=== PATIENT | male | born 1960 | race African-American/Black ===

== ENCOUNTER 2019-01-28 15:02 | Emergency (ER) | payer OTHER ==
--- OUTSIDE RECORDS SUMMARY | 2019-01-28 15:04 | XMS REPORT | Clinical Summary ---
:1960 Author Organization [facility] Address [address] [place] [address] Care Team Providers Name Role Phone Mary Lou Hamilton Primary Care Provider Unavailable Allergies No Known Allergies Medications Medication Sig Dispensed Refills Start Date End Date Status lisinopril-hydrochloro Take 1 tablet by 0 Active thiazide mouth daily. (PRINZIDE,ZESTORETIC) 20-12.5 mg per tablet Active Problems Not on file Social History Tobacco Use Types Packs/Day Years Used Date Never Smoker 0.5 Alcohol Use Drinks/Week oz/Week Comments Yes occasional Sex Assigned at Date Recorded Not on file Job Start Date Occupation Industry Not on file Not on file Not on file Travel History Travel Start Travel End No recent travel history available. Last Filed Vital Signs Not on file Plan of Treatment Not on file Results Not on fileafter 01/27/2018 Insurance Payer Benefit Plan / Group Subscriber ID Type Phone Address [employer] - [employer] CARE CIGNA HMO/POS/OPEN ACCESS xxxxxxxxxxx HMO/POS
--- NOTE | 2019-01-28 17:11 | EDPHYS ---
Physician Documentation [facility] Name: Bakari Delgado Sr Age: 58 yrs Sex: Male : 1960 Arrival Date: 01/28/2019 Time: 15:04 Bed 17 Private MD: ED Physician Yosef Rausch HPI: 01/28 17:01 This 58 yrs old Black Male presents to ER via Ambulatory with complaints of Arm Pain. kb 17:01 The patient or guardian complains of pain, that is acute. The complaints affect the kb left elbow and palmar aspect of left forearm. Context: The problem was sustained at home, resulted from unknown cause. Onset: The symptoms/episode began/occurred last night. Treatment prior to arrival includes: no previous treatment. Modifying factors: The symptoms are alleviated by nothing. the symptoms are aggravated by nothing. Associated signs and symptoms: The patient has no apparent associated signs or symptoms. Severity of symptoms: At their worst the symptoms were moderate, in the emergency department the symptoms are unchanged. The patient has not experienced similar symptoms in the past. The patient has not recently seen a physician. pt c/o left elbow/forearm pain that woke him up at approx 0400 this morning. Denies injury/trauma. No pain with rom/palpation. Called his dr to make an appt but they couldn't get him in until tomorrow so he came here. . Historical: - Allergies: 15:18 NKDA; tw2 - Home Meds: 15:18 lisinopril-hydrochlorothiazide 20-12.5 mg Oral tab 1 tab once daily [Active]; tw2 - PMHx: 15:18 Hypertension; tw2 - PSHx: 15:18 anal fissure repair; tw2 - Immunization history:: Adult Immunizations. - Social history:: Smoking status: . - Ebola Screening: : Patient denies travel to an Ebola-affected area in the 21 days before illness onset. ROS: 17:00 Constitutional: Negative for fever, chills, and weight loss, Cardiovascular: Negative kb for chest pain, palpitations, and edema, Respiratory: Negative for shortness of breath, cough, wheezing, and pleuritic chest pain, Abdomen/GI: Negative for abdominal pain, nausea, vomiting, diarrhea, and constipation, Skin: Negative for injury, rash, and discoloration, Neuro: Negative for headache, weakness, numbness, tingling, and seizure. 17:00 MS/extremity: Positive for pain, of the left elbow and palmar aspect of left forearm. Exam: 17:00 Constitutional: This is a well developed, well nourished patient who is awake, alert, kb and in no acute distress. Head/Face: Normocephalic, atraumatic. Chest/axilla: Normal chest wall appearance and motion. Nontender with no deformity. No lesions are appreciated. Cardiovascular: Regular rate and rhythm with a normal S1 and S2. No gallops, murmurs, or rubs. Normal PMI, no JVD. No pulse deficits. Respiratory: Lungs have equal breath sounds bilaterally, clear to auscultation and percussion. No rales, rhonchi or wheezes noted. No increased work of breathing, no retractions or nasal flaring. Abdomen/GI: Soft, non-tender, with normal bowel sounds. No distension or tympany. No guarding or rebound. No evidence of tenderness throughout. Back: No spinal tenderness. No costovertebral tenderness. Full range of motion. Skin: Warm, dry with normal turgor. Normal color with no rashes, no lesions, and no evidence of cellulitis. MS/ Extremity: Pulses equal, no cyanosis. Neurovascular intact. Full, normal range of motion. Neuro: Awake and alert, GCS 15, oriented to person, place, time, and situation. Cranial nerves II-XII grossly intact. Motor strength 5/5 in all extremities. Sensory grossly intact. Cerebellar exam normal. Normal gait. Vital Signs: 15:17 BP 141 / 69; Pulse 78; Resp 17; Temp 98(TE); Pulse Ox 95% on R/A; Weight 128.82 kg (R); tw2 Height 5 ft. 7 in. (170.18 cm); Pain 8/10; 17:16 BP 147 / 71; Pulse 69; Resp 17; Temp 98; Pulse Ox 97% ; bp 15:17 Body Mass Index 44.48 (128.82 kg, 170.18 cm) tw2 MDM: 16:50 Patient medically screened. kb 17:01 Data reviewed: vital signs, nurses notes. Data interpreted: Pulse oximetry: on room air kb is 95 %. Interpretation: normal. Counseling: I had a detailed discussion with the patient and/or guardian regarding: the historical points, exam findings, and any diagnostic results supporting the discharge/admit diagnosis, the need for outpatient follow up, a family practitioner, to return to the emergency department if symptoms worsen or persist or if there are any questions or concerns that arise at home. 17:04 ED course: No redness, swelling, warmth noted. No infectious process suspected. No kb signs of gout noted. . Administered Medications: 17:05 Drug: [place] 10 mg-325 mg 1 tabs Route: PO; bp Disposition: 01/29 09:11 Co-signature as Attending Physician, Yosef Rausch MD I agree with the assessment and kdr plan of care. Disposition: 01/28/19 17:09 Discharged to Home. Impression: Pain in left forearm, Pain in left elbow. - Condition is Stable. - Discharge Instructions: Musculoskeletal Pain. - Prescriptions for Cyclobenzaprine 10 mg Oral Tablet - take 1 tablet by ORAL route every 8 hours As needed; 21 tablet. Diclofenac Sodium 75 mg Oral Tablet, Delayed Release (E.C.) - take 1 tablet by ORAL route 2 times per day As needed; 30 tablet. - Medication Reconciliation Form, Thank You Letter, Antibiotic Education, Prescription Opioid Use form. - Follow up: Emergency Department; When: As needed; Reason: Worsening of condition. Follow up: Private Physician; When: 2 - 3 days; Reason: Recheck today's complaints, Continuance of care, Re-evaluation by your physician. Signatures: Jennifer Genao, PARAPROFESSIONAL AIDE-C PARAPROFESSIONAL AIDE-Yosef King MD MD [facility] Asia Rdz RN RN 2 Jack Alvarez, AYANA RN bp Corrections: (The following items were deleted from the chart) 01/28 17:21 17:09 01/28/2019 17:09 Discharged to Home. Impression: Pain in left forearm; Pain in bp left elbow. Condition is Stable. Forms are Medication Reconciliation Form, Thank You Letter, Antibiotic Education, Prescription Opioid Use. Follow up: Emergency Department; When: As needed; Reason: Worsening of condition. Follow up: Private Physician; When: 2 - 3 days; Reason: Recheck today's complaints, Continuance of care, Re-evaluation by your physician. kb
--- NOTE | 2019-01-28 17:11 | ER ---
Nurse's Notes [facility] Name: Bakari Delgado Sr Age: 58 yrs Sex: Male : 1960 Arrival Date: 01/28/2019 Time: 15:04 Bed 17 Private MD: Diagnosis: Pain in left forearm;Pain in left elbow Presentation: 01/28 15:15 Presenting complaint: Patient states: my LEFT elbow started hurting last night then 3 tw2 am this morning it really got bad, from the middle of my upper arm down to the middle of my forearm, and every once in a while it sends a zing up to my neck. Transition of care: patient was not received from another setting of care. Onset of symptoms was January 28, 2019. Risk Assessment: Do you want to hurt yourself or someone else? Patient reports no desire to harm self or others. Initial Sepsis Screen: Does the patient meet any 2 criteria? No. Patient's initial sepsis screen is negative. Does the patient have a suspected source of infection? No. Patient's initial sepsis screen is negative. Care prior to arrival: None. 15:15 Method Of Arrival: Ambulatory tw2 15:15 Acuity: REMY 4 tw2 Triage Assessment: 15:17 General: Appears in no apparent distress. obese, well groomed, Behavior is calm, tw2 cooperative, appropriate for age. Pain: Complains of pain in left bicep, left antecubital area and dorsal aspect of left forearm. Musculoskeletal: Circulation, motion, and sensation intact. Range of motion: intact in all extremities. Historical: - Allergies: 15:18 NKDA; tw2 - Home Meds: 15:18 lisinopril-hydrochlorothiazide 20-12.5 mg Oral tab 1 tab once daily [Active]; tw2 - PMHx: 15:18 Hypertension; tw2 - PSHx: 15:18 anal fissure repair; tw2 - Immunization history:: Adult Immunizations. - Social history:: Smoking status: . - Ebola Screening: : Patient denies travel to an Ebola-affected area in the 21 days before illness onset. Screenin:00 Abuse screen: Denies threats or abuse. Denies injuries from another. Nutritional bp screening: No deficits noted. Tuberculosis screening: No symptoms or risk factors identified. Fall Risk None identified. Assessment: 16:00 General: Appears in no apparent distress. uncomfortable, Behavior is cooperative, bp appropriate for age, anxious. Pain: Complains of pain in left arm. Neuro: Level of Consciousness is awake, alert, obeys commands, Oriented to person, place, time, situation, Appropriate for age. Cardiovascular: No deficits noted. Respiratory: Airway is patent Respiratory effort is even, unlabored, Respiratory pattern is regular, symmetrical. GI: No signs and/or symptoms were reported involving the gastrointestinal system. : No signs and/or symptoms were reported regarding the genitourinary system. EENT: No deficits noted. Derm: No deficits noted. Musculoskeletal: Circulation, motion, and sensation intact. Range of motion: intact in all extremities. Vital Signs: 15:17 BP 141 / 69; Pulse 78; Resp 17; Temp 98(TE); Pulse Ox 95% on R/A; Weight 128.82 kg (R); tw2 Height 5 ft. 7 in. (170.18 cm); Pain 8/10; 17:16 BP 147 / 71; Pulse 69; Resp 17; Temp 98; Pulse Ox 97% ; bp 15:17 Body Mass Index 44.48 (128.82 kg, 170.18 cm) tw2 ED Course: 15:04 Patient arrived in ED. mr 15:17 Triage completed. tw2 15:17 Arm band placed on. tw2 16:00 Patient has correct armband on for positive identification. Bed in low position. Call bp light in reach. Side rails up X2. Adult w/ patient. 16:50 Jennifer Genao FNP-C is [facility]. kb 16:50 Yosef Rausch MD is Attending Physician. kb 16:58 Jack Alvarez, AYANA is Primary Nurse. bp 17:17 No provider procedures requiring assistance completed. Patient did not have IV access bp during this emergency room visit. Administered Medications: 17:05 Drug: [place] 10 mg-325 mg 1 tabs Route: PO; bp Outcome: 17:09 Discharge ordered by . kb 17:17 Discharged to home ambulatory, with family. bp 17:17 Condition: stable 17:17 Discharge instructions given to patient, family, Instructed on discharge instructions, follow up and referral plans. medication usage, Demonstrated understanding of instructions, follow-up care, medications, Prescriptions given X 2. 17:21 Patient left the ED. bp Signatures: Jennifer Genao, ROSALBA BURR FILER-Tram Bowens mr Asia Rdz, RN RN tw2 Jakc Alvarez, RN RN bp
[2019-01-28] MEDS ORDERED: HYDROCODONE/APAP 10/325 TAB ONE (17:18)
[2019-01-28 18:12] VITALS: TEMP 98
[2019-01-28 18:13] VITALS: BP 147/71; O2SAT 97
== END 2019-01-28 17:21 | disposition home or self-care (01) ==
LOC: ER 15:02
DX: M79.632 Pain in left forearm (principal); M25.522 Pain in left elbow; I10 Essential (primary) hypertension
CPT/HCPCS: 99283

== ENCOUNTER 2020-06-05 05:45 | Emergency (ER) | payer OTHER ==
--- OUTSIDE RECORDS SUMMARY | 2020-06-05 05:47 | XMS REPORT | Clinical Summary ---
:1960 Author Organization [facility] Address [address] [place] [address] Care Team Providers Name Role Phone Valeria Hamilton Primary Care Provider Unavailable Allergies No [...] Not on file Results Not on fileafter 06/05/2019 Insurance Payer Benefit Plan / Group Subscriber ID Type Phone A ddress [employer] - [employer]GD CARE CIGNA HMO/POS/OPEN ACCESS xxxxxxxxxxx HMO/POS
[2020-06-05 06:52] LABS: Absolute Lymphocytes (CBC) 1.1 K/uL (0.7-4.9); Basophils % 0.7 % (0-1.3); Hematocrit 43.8 % (39.6-49.0); Lymphocytes % 19.4 % (15.3-44.8); MPV 7.5 fL (7.6-11.3)
[2020-06-05 06:53] LABS: Protime INR 1.16
[2020-06-05 07:10] LABS: ALT/SGPT 23 U/L (12-78); AST/SGOT 11 U/L (15-37); Albumin 3.5 g/dL (3.4-5.0); Alkaline Phosphatase 56 U/L (45-117); BUN Blood Urea Nitrogen 13 mg/dL (7-18); Bicarbonate 23 mmol/L (21-32); Bilirubin Direct 0.1 mg/dL (0-0.2); Bilirubin Total 0.5 mg/dL (0.2-1.0); Glucose Level 103 mg/dL (74-106); Magnesium 2.2 mg/dL (1.8-2.4); NT PRO-BNP 12 pg/mL (<125); Potassium 3.6 mmol/L (3.5-5.1); Protein, Total 7.3 g/dL (6.4-8.2); Sodium Level 141 mmol/L (136-145); Troponin (Emerg Dept Use Only) < 0.02 ng/mL (0.0-0.045)
--- NOTE | 2020-06-05 07:19 | RAD REPORT ---
EXAM DESCRIPTION: RAD - Chest Single View - 06/05/2020 6:32 am CLINICAL HISTORY: CHEST PAIN COMPARISON: Portable June 2006 TECHNIQUE: AP portable chest image was obtained 06/05/2020 6:32 am . FINDINGS: Lung volumes are low. Exam is further limited by large body habitus. No peripheral mass or consolidation. No significant pulmonary edema or failure findings. Mild forms could be obscured by t he exam limitations. Heart and vasculature are normal. No measurable pleural effusion and no pneumothorax. No acute bony abnormality seen. No acute aortic findings suspected. IMPRESSION: Limited study without acute cardiopulmonary finding. Mild forms of failure or volume overload could be masked.
[2020-06-05] MEDS ORDERED: KETOROLAC 30 MG/ML INJ ONE (08:07)
--- NOTE | 2020-06-05 09:37 | EDPHYS ---
Physician Documentation [facility] Name: Bakari Delgado Sr Age: 60 yrs Sex: Male : 1960 Arrival Date: 06/05/2020 Time: 05:47 Bed 6 Private MD: ED Physician Lionel Sosa HPI: 06/05 06:52 This 60 yrs old Black Male presents to ER via Ambulatory with complaints of Chest Pain. kb 06:52 The patient or guardian reports chest pain that is located primarily in the anterior kb chest wall. Onset: 3 day(s) ago. The pain does not radiate. Associated signs and symptoms: The patient has no apparent associated signs or symptoms. The chest pain is described as aching. Duration: The patient or guardian reports a single episode, that is still ongoing, and unchanged. Modifying factors: The symptoms are alleviated by nothing. the symptoms are aggravated by deep breath. Severity of pain: At its worst the pain was mild in the emergency department the pain is unchanged. The patient has experienced a previous episode. The patient has not recently seen a physician. Pt reports mid and upper chest pain that started 3 days ago after doing yard work. States pain is worse with inspiration. Denies any associated symptoms. States he had similar pain a few years ago from a strained muscle. . Historical: - Allergies: 06:03 NKDA; lp1 - Home Meds: 06:03 lisinopril-hydrochlorothiazide 20-12.5 mg Oral tab 1 tab once daily [Active]; atenolol lp1 25 mg Oral tab 1 tab once daily [Active]; - PMHx: 06:03 Hypertension; lp1 - PSHx: 06:03 Anal fissure; lp1 - Immunization history:: Adult Immunizations up to date. - Social history:: Smoking status: Patient denies any tobacco usage or history of. ROS: 06:51 Constitutional: Negative for fever, chills, and weight loss, Respiratory: Negative for kb shortness of breath, cough, wheezing, and pleuritic chest pain, Abdomen/GI: Negative for abdominal pain, nausea, vomiting, diarrhea, and constipation, Back: Negative for injury and pain, MS/Extremity: Negative for injury and deformity, Skin: Negative for injury, rash, and discoloration, Neuro: Negative for headache, weakness, numbness, tingling, and seizure. 06:51 Cardiovascular: Positive for chest pain, of the right supraclavicular area, left clavicle and mid-sternal area. Exam: 06:50 Constitutional: This is a well developed, well nourished patient who is awake, alert, kb and in no acute distress. Head/Face: Normocephalic, atraumatic. Chest/axilla: Normal chest wall appearance and motion. Nontender with no deformity. No lesions are appreciated. Cardiovascular: Regular rate and rhythm with a normal S1 and S2. No gallops, murmurs, or rubs. Normal PMI, no JVD. No pulse deficits. Respiratory: Lungs have equal breath sounds bilaterally, clear to auscultation and percussion. No rales, rhonchi or wheezes noted. No increased work of breathing, no retractions or nasal flaring. Abdomen/GI: Soft, non-tender, with normal bowel sounds. No distension or tympany. No guarding or rebound. No evidence of tenderness throughout. Skin: Warm, dry with normal turgor. Normal color with no rashes, no lesions, and no evidence of cellulitis. MS/ Extremity: Pulses equal, no cyanosis. Neurovascular intact. Full, normal range of motion. Neuro: Awake and alert, GCS 15, oriented to person, place, time, and situation. Cranial nerves II-XII grossly intact. Motor strength 5/5 in all extremities. Sensory grossly intact. Cerebellar exam normal. Normal gait. 06:50 ECG was reviewed by the Attending Physician. 09:17 ECG was reviewed by the Attending Physician. kb Vital Signs: 05:58 BP 141 / 76; Pulse 74; Resp 18; Temp 98.7(TE); Pulse Ox 95% on R/A; Weight 128.82 kg lp1 (R); Height 5 ft. 7 in. (170.18 cm); Pain 5/10; 07:11 BP 120 / 72; Pulse 65; Resp 16 S; Pulse Ox 98% on R/A; iw 07:51 BP 119 / 69; Pulse 67; Resp 19; Pulse Ox 97% ; sv 09:11 BP 118 / 58; Pulse 68; Pulse Ox 98% on R/A; ss 05:58 Body Mass Index 44.48 (128.82 kg, 170.18 cm) lp1 MDM: 06:01 Patient medically screened. kb 06:50 Data reviewed: vital signs, nurses notes. Data interpreted: Pulse oximetry: on room air kb is 95 %. Interpretation: normal. 09:35 Counseling: I had a detailed discussion with the patient and/or guardian regarding: the kb historical points, exam findings, and any diagnostic results supporting the discharge/admit diagnosis, lab results, radiology results, the need for outpatient follow up, a family practitioner, to return to the emergency department if symptoms worsen or persist or if there are any questions or concerns that arise at home. 06/05 06:03 Order name: Basic Metabolic Panel kb 06/05 06:03 Order name: CBC with Diff kb 06/05 06:03 Order name: LFT's 06/05 06:03 Order name: Magnesium 06/05 06:03 Order name: NT PRO-BNP 06/05 06:03 Order name: PT-INR 06/05 06:03 Order name: Troponin (emerg Dept Use Only) 06/05 06:53 Order name: CBC with Automated Diff; Complete Time: 06:55 EDMS 06/05 06:54 Order name: Protime (+INR); Complete Time: 06:55 EDMS 06/05 07:10 Order name: Basic Metabolic Panel; Complete Time: 07:15 EDMS 06/05 07:10 Order name: Liver (Hepatic) Function; Complete Time: 07:15 EDMS 06/05 07:10 Order name: Troponin (Emerg Dept Use Only); Complete Time: 07:15 EDMS 06/05 07:10 Order name: NT PRO-BNP; Complete Time: 07:15 EDMS 06/05 07:10 Order name: Magnesium; Complete Time: 07:15 EDMS 06/05 06:03 Order name: XRAY Chest (1 view) kb 06/05 06:03 Order name: EKG; Complete Time: 06:06 kb 06/05 06:03 Order name: Cardiac monitoring; Complete Time: 06:43 kb 06/05 06:03 Order name: EKG - Nurse/Tech; Complete Time: 06:43 kb 06/05 06:03 Order name: IV Saline Lock; Complete Time: 06:43 kb 06/05 06:03 Order name: Labs collected and sent; Complete Time: 06:43 kb 06/05 06:03 Order name: O2 Per Protocol; Complete Time: 06:43 kb 06/05 06:03 Order name: O2 Sat Monitoring; Complete Time: 06:43 kb 06/05 07:19 Order name: RAD; Complete Time: 07:34 EDMS 06/05 08:37 Order name: Troponin (emerg Dept Use Only) kb 06/05 08:37 Order name: EKG; Complete Time: 08:37 kb 06/05 08:37 Order name: EKG - Nurse/Tech; Complete Time: 09:19 kb 06/05 09:30 Order name: Troponin (Emerg Dept Use Only); Complete Time: 09:35 EDMS EC:50 Rate is 67 beats/min. Rhythm is regular. QRS [place] is Normal. TX interval is normal at kb 188 msec. QRS interval is normal at 82 msec. QT interval is normal at 378 msec. 09:17 Rate is 65 beats/min. Rhythm is regular. QRS [place] is Normal. TX interval is normal at kb 194 msec. QRS interval is normal at 90 msec. QT interval is normal at 388 msec. Administered Medications: 07:58 Drug: TORadol - Ketorolac 15 mg Route: IVP; Site: right antecubital; iw 08:30 Follow up: Response: No adverse reaction iw Disposition: 19:04 Co-signature as Attending Physician, Lionel Sosa MD. selena Disposition: 06/05/20 09:36 Discharged to Home. Impression: Chest pain, unspecified. - Condition is Stable. - Discharge Instructions: Chest Wall Pain, [id number], Nonspecific Chest Pain, [id number]. - Prescriptions for Cyclobenzaprine 10 mg Oral Tablet - take 1 tablet by ORAL route every 8 hours As needed; 21 tablet. Diclofenac Sodium 75 mg Oral Tablet, Delayed Release (E.C.) - take 1 tablet by ORAL route 2 times per day As needed; 30 tablet. - Medication Reconciliation Form, Thank You Letter, Antibiotic Education, Prescription Opioid Use form. - Follow up: Emergency Department; When: As needed; Reason: Worsening of condition. Follow up: Private Physician; When: 2 - 3 days; Reason: Recheck today's complaints, Continuance of care, Re-evaluation by your physician. Signatures: Dispatcher [employer] EDMS Jennifer Genao, GILES-Mulugeta SKAGGS-Ckb Sosa, MD MD selena Flowers Irene RN RN iw Grazyna Hoff RN RN lp1 Corrections: (The following items were deleted from the chart) 10:02 09:36 06/05/2020 09:36 Discharged to Home. Impression: Chest pain, unspecified. iw Condition is Stable. Forms are Medication Reconciliation Form, Thank You Letter, Antibiotic Education, Prescription Opioid Use. Follow up: Emergency Department; When: As needed; Reason: Worsening of condition. Follow up: Private Physician; When: 2 - 3 days; Reason: Recheck today's complaints, Continuance of care, Re-evaluation by your physician. kb
--- NOTE | 2020-06-05 09:37 | ER ---
Nurse's Notes [facility] Name: Bakari Delgado Sr Age: 60 yrs Sex: Male : 1960 Arrival Date: 06/05/2020 Time: 05:47 Bed 6 Private MD: Diagnosis: Chest pain, unspecified Presentation: 06/05 05:58 Chief complaint: Patient states: Chest pain that began 2 days ago; Patient states doing lp1 yard work 2 days ago, using pole saw to cut down trees and mowed yard for 3 hours; Has pain to chest and upper back on movement and respiration; Denies shortness of breath, dizziness, sweating at this time; No OTC medications at home for pain. Coronavirus screen: Client denies travel out of the [place] in the last 14 days. At this time, the client does not indicate any symptoms associated with coronavirus-19. Ebola Screen: No symptoms or risks identified at this time. Initial Sepsis Screen: Does the patient meet any 2 criteria? No. Patient's initial sepsis screen is negative. Does the patient have a suspected source of infection? No. Patient's initial sepsis screen is negative. Risk Assessment: Do you want to hurt yourself or someone else? Patient reports no desire to harm self or others. Onset of symptoms was June 03, 2020. 05:58 Method Of Arrival: Ambulatory lp1 05:58 Acuity: REMY 3 lp1 Historical: - Allergies: 06:03 NKDA; lp1 - Home Meds: 06:03 lisinopril-hydrochlorothiazide 20-12.5 mg Oral tab 1 tab once daily [Active]; atenolol lp1 25 mg Oral tab 1 tab once daily [Active]; - PMHx: 06:03 Hypertension; lp1 - PSHx: 06:03 Anal fissure; lp1 - Immunization history:: Adult Immunizations up to date. - Social history:: Smoking status: Patient denies any tobacco usage or history of. Screenin:03 Abuse screen: Denies threats or abuse. Denies injuries from another. Nutritional lp1 screening: No deficits noted. Tuberculosis screening: No symptoms or risk factors identified. Fall Risk None identified. Assessment: 06:51 General: Appears comfortable, Behavior is calm, cooperative. Pain: Complains of pain in rv chest Pain does not radiate. Pain began suddenly. Neuro: Level of Consciousness is awake, alert, obeys commands, Oriented to person, place, time, situation. Cardiovascular: Rhythm is sinus rhythm. Respiratory: Airway is patent Respiratory effort is even, unlabored, Breath sounds are clear bilaterally. Derm: Skin is intact. 07:11 Reassessment: Patient appears in no apparent distress at this time. Patient and/or iw family updated on plan of care and expected duration. Pain level reassessed. Patient is alert, oriented x 3, equal unlabored respirations, skin warm/dry/pink. 09:00 Reassessment: Patient appears in no apparent distress at this time. Patient and/or iw family updated on plan of care and expected duration. Pain level reassessed. Patient is alert, oriented x 3, equal unlabored respirations, skin warm/dry/pink. Vital Signs: 05:58 BP 141 / 76; Pulse 74; Resp 18; Temp 98.7(TE); Pulse Ox 95% on R/A; Weight 128.82 kg lp1 (R); Height 5 ft. 7 in. (170.18 cm); Pain 5/10; 07:11 BP 120 / 72; Pulse 65; Resp 16 S; Pulse Ox 98% on R/A; iw 07:51 BP 119 / 69; Pulse 67; Resp 19; Pulse Ox 97% ; sv 09:11 BP 118 / 58; Pulse 68; Pulse Ox 98% on R/A; ss 05:58 Body Mass Index 44.48 (128.82 kg, 170.18 cm) lp1 ED Course: 05:47 Patient arrived in ED. cl3 06:01 [facility] kb 06:01 Lionel Sosa MD is Attending Physician. kb 06:02 Triage completed. lp1 06:02 Arm band placed on left wrist. lp1 06:03 Patient maintains SpO2 saturation greater than 95% on room air. lp1 06:34 Tyron Ruiz RN is Primary Nurse. rv 06:40 Inserted saline lock: 18 gauge in right antecubital area, using aseptic technique. ds4 Blood collected. 06:52 Patient has correct armband on for positive identification. Bed in low position. Call rv light in reach. Side rails up X 1. cell coverer on. Pulse ox on. NIBP on. 07:01 Basic Metabolic Panel Sent. sv 07:01 CBC with Diff Sent. sv 07:01 LFT's Sent. sv 07:01 Magnesium Sent. sv 07:01 NT PRO-BNP Sent. sv 07:01 PT-INR Sent. sv 07:01 Troponin (emerg Dept Use Only) Sent. sv 07:02 XRAY Chest (1 view) Sent. sv 07:12 Primary Nurse role handed off by Tyron Ruiz, AYANA iw 07:12 Quin Vasquez, RN is Primary Nurse. iw 09:09 Troponin (emerg Dept Use Only) Sent. iw 10:01 No provider procedures requiring assistance completed. IV discontinued, intact, iw bleeding controlled, No redness/swelling at site. Pressure dressing applied. Administered Medications: 07:58 Drug: TORadol - Ketorolac 15 mg Route: IVP; Site: right antecubital; iw 08:30 Follow up: Response: No adverse reaction iw Outcome: 09:36 Discharge ordered by MD. kb 10:01 Discharged to home ambulatory. iw 10:01 Condition: good 10:01 Discharge instructions given to patient, Instructed on discharge instructions, follow up and referral plans. medication usage, Demonstrated understanding of instructions, follow-up care, medications, Prescriptions given X 2. 10:02 Patient left the ED. iw Signatures: Jennifer Genao, GILES-C VP PLATFORMS-Mary Jane Brandt, RN AYANA Quin Vasquez, AYANA PIÑA Kandi Damico RN RN ss Pena, Laura, RN RN lp1 Kobi Estrada ds4 Tyron Ruiz, Nani Otero RN cl3 Corrections: (The following items were deleted from the chart) 10:32 10:01 Patient admitted, IV remains in place. iw iw
[2020-06-05 10:48] VITALS: TEMP 98.7
[2020-06-05 10:49] VITALS: O2SAT 98
[2020-06-05 10:55] VITALS: BP 118/58
--- NOTE | 2020-06-06 10:47 | EKG ---
Test Date: 2020-06-05 Test Time: 06:45:53 System Admin: RV MEASUREMENT RESULTS: Intervals: Rate: 67 AR: 188 QRSD: 82 QT: 378 QTc: 399 [place]: P: 57 AR: 188 QRS: 28 T: -7 INTERPRETIVE STATEMENTS: Sinus rhythm with premature ventricular complexes or fusion complexes Possible Left atrial enlargement Inferior infarct, age undetermined Abnormal ECG Compared to ECG 07/01/2016 10:00:19 Fusion complex(es) now present Ventricular premature complex(es) now present Myocardial infarct finding now present Electronically Signed On 06-06-20 10:45:19 CDT by Michael Dudley
--- NOTE | 2020-06-06 10:47 | EKG ---
Test Date: 2020-06-05 Test Time: 09:17:18 Wreath Inspector: KATIE MEASUREMENT RESULTS: Intervals: Rate: 65 SC: 194 QRSD: 90 QT: 388 QTc: 403 [place]: P: 41 SC: 194 QRS: 32 T: 1 INTERPRETIVE STATEMENTS: Normal sinus rhythm Possible Left atrial enlargement Inferior infarct, age undetermined Abnormal ECG Compared to ECG 06/05/2020 06:45:53 Fusion complex(es) no longer present Ventricular premature complex(es) no longer present Myocardial infarct finding still present Electronically Signed On 06-06-20 10:45:07 CDT by Michael Dudley
== END 2020-06-05 10:02 | disposition home or self-care (01) ==
LOC: ER 05:45
DX: R07.9 Chest pain, unspecified (principal); I10 Essential (primary) hypertension
CPT/HCPCS: 36415; 71045; 80048; 80076; 83735; 83880; 84484; 85025; 85610; 93005; 96374; 99285

== ENCOUNTER 2021-10-19 17:23 | Emergency (ER) | payer OTHER ==
[2012-01-24 01:01] VITALS: BP 120/56
== END 2021-10-19 17:32 | disposition left against medical advice (07) ==
LOC: ER 17:23
DX: Z02.9 Encounter for administrative examinations, unspecified (principal)

== ENCOUNTER 2022-02-14 14:12 | Emergency (ER) | payer OTHER ==
--- OUTSIDE RECORDS SUMMARY | 2022-02-14 14:14 | XMS REPORT | Continuity of Care Document ---
:1960 Author Organization [facility] t Address [address] [place] [address] Care Team Providers Name Role Phone Valeria TOMAS Primary Care Physician Unavailable Natan BAILON Attending Clinician Unavailable Natan Bailon NP Attending Clinician Natan BAILON Admitting Clinician Unavailable Payers Payer Name Policy Type Policy Number Effective Date Expiration Date Cielo verdugo CIGNA II [id number] 2020 00:00:00 Problems Condition Condition Condition Status Onset Resolution Last Treating Co mments Source Name Details Category Date Date Treatment Clinician Date No known No known Disease Unive rs active active ity of problems problems [facility] Allergies, Adverse Reactions, Alerts Allergy Allergy Status Severity Reaction(s) Onset Inactive Treating Comm ents Source Name Type Date Date Clinician NO KNOWN Drug Active Univers ALLERGIE Class ity of S [facility] Social History Social Habit Start Date Stop Date Quantity Comments Source Exposure to Not sure [facility] SARS-CoV-2 (event) Medica l Branch Sex Assigned At [address] 1960 [facility] 00:00:00 00:00:00 [facility] Smoking Status Start Date Stop Date Source Unknown if ever smoked [facility] Medications Ordered Filled Start Stop Current Ordering Indication Dosage Frequency Signature Comments Components Source Medication Medication Date Date Medication? Clinician (SIG) Name Name famotidine No 20mg 20 mg, Univ ers (PEPCID 2-12 -12 Slow IV ity of (PF)) 03:00: 02:00 [place], [place] injection 00 :00 ONCE, 1 Medical 20 mg dose, On Branch 10/19/21 at 2100, CHIP ketorolac 2021- No 30mg 30 mg, Unive rs (TORADOL) 10-20 Slow IV ity of injection 03:00: 02:00 [place], [place] 30 mg 00 :00 ONCE, 1 Medical dose, On Branch 10/19/21 at 2100, Routine
support team member approving Restricted medication : BRENDA BAILON aspirin No 325mg 325 mg, Unive rs tablet 325 10-20 Oral, ity of mg 01:00: 00:52 ONCE, 1 [place] 00 :00 dose, On Medical Fri Branch 10/19/21 at 1900, STAT lisinopriL- Yes 1{tbl} Take 1 Un tigre hydrochloro 2-11 tablet by ity of thiazide 22:40: mouth [place] 20-12.5 mg 20 every Medical per tablet morning. Bran h Immunizations Ordered Filled Immunization Date Status Comments Sour e Immunization Name Name SARS-COV-2 COVID-19 2020-12-11 Completed Unive rsity of MODERNA VACCINE 00:00:00 [facility] SARS-COV-2 COVID-19 2020-11-13 Completed Unive rsity of MODERNA VACCINE 00:00:00 [facility] Vital Signs Vital Name Observation Time Observation Value Comments Source Systolic blood 2021-10-20 04:00:00 144 mm[Hg] Univer sity of pressure [facility] Diastolic blood 2021-10-20 04:00:00 64 mm[Hg] Unive rsity of pressure [facility] Heart rate 2021-10-20 04:00:00 72 /min [facility] Respiratory rate 2021-10-20 04:00:00 14 /min [facility] Oxygen saturation in 2021-10-20 04:00:00 95 /min [facility] Arterial blood by [facility] Pulse oximetry [place] Body temperature 2021-10-20 00:08:00 37.83 Fatou [facility] Body height 2021-10-20 00:08:00 170.2 cm [facility] Body weight 2021-10-20 00:08:00 127.007 kg [facility] BMI 2021-10-20 00:08:00 43.85 kg/m2 [facility] Procedures Procedure Date / Time Performing Clinician Source Performed TROPONIN I 2021-10-20 03:04:00 Brenda Bailon [facility] XR CHEST 1 VW 2021-10-20 01:28:30 Brenda Bailon [facility] LIPASE 2021-10-20 00:51:00 Brenda Bailon [facility] TROPONIN I 2021-10-20 00:51:00 Brenda Bailon [facility] COMP. METABOLIC PANEL 2021-10-20 00:51:00 Brenda Bailon [facility] ([id number]) [facility] CBC WITH DIFF 2021-10-20 00:51:00 Brenda Bailon [facility] PROTHROMBIN TIME / INR 2021-10-20 00:51:00 Brenda Bailon [facility] D-DIMER 2021-10-20 00:51:00 Brenda Bailon [facility] ACTIVATED PARTIAL 2021-10-20 00:51:00 Brenda Bailon [facility] NOTICE OF PRIVACY 2021-10-19 23:57:26 Doctor Unassigned, No [facility] PRACTICES Name [facility] CONSENT/REFUSAL FOR 2021-10-19 23:57:03 [facility] Encounters Start End Encounter Admission Attending Care Care Encounter Source Date/Time Date/Time Type Type Clinicians Facility Department ID 2021-10-19 2021-10-19 Emergency X [facility] ERT [id number] Univers 18:14:00 22:42:00 BRENDA vazquez [facility] 2021-10-19 2021-10-19 Emergency [facility] [id number] Univers 18:14:00 22:42:00 Brenda DUFF [id number] taylor hart BASTROP [id number] [facility] [id number] [place] [id number] Branch Results Test Description Test Time Test Comments Results Result Comments Source TROPONIN I 2021-10-20 03:44:24 Test Item Value Reference Range Interpretation Comme nts TROPONIN I (test code = 0.007 ng/mL See_Comment [Au tomated message] The 1396260902) system which ge nerated this result tra nsmitted reference range : <=0.034. The reference r tariq was not used to int erpret this result as normal/abnormal . LIT (test code = LIT) Reference (Normal) Range (defined by the 99th percentile reference limit): <= 0.034 ng/mL Note: Cardiac troponin begins to rise 3-4 hours after the onset of ischemia. Repeat in 4-6 hours if the sample was drawn within 3-4 hours of the onset of the symptom and found normal. Diagnosis of myocardial injury is made with acute changes in cTn concentrations with at least one serial sample above the 99th percentile upper reference limit (URL), taken together with the patient's clinical presentation. Biotin has been reported to cause a negative bias, interpret results relative to patient's use of biotin. Lab Interpretation Normal (test code = 40532-2) [facility] [id number] 01:30:31 Test Item Value Reference Interpretation Comments Range TROPONIN I (test 0.006 ng/mL See_Comment [Automated code = 9604348732) message] The system which generated this result transmitted reference range : <=0.034. The reference range was not used to interpret this result as normal/abnormal . LIT (test code = Reference (Normal) LIT) Range (defined by the 99th percentile reference limit): <= 0.034 ng/mL Note: Cardiac troponin begins to rise 3-4 hours after the onset of ischemia. Repeat in 4-6 hours if the sample was drawn within 3-4 hours of the onset of the symptom and found normal. Diagnosis of myocardial injury is made with acute changes in cTn concentrations with at least one serial sample above the 99th percentile upper reference limit (URL), taken together with the patient's clinical presentation. Biotin has been reported to cause a negative bias, interpret results relative to patient's use of biotin. Lab Interpretation Normal (test code = 57005-4) [id number] 01:26:13 Test Item Value Reference Interpretation Comments Range D-DIMER (test code = <0.27 See_Comment [Autom ated 2044194557) message] The system which generated this result transmitted reference range : <0.41 ?g/mL (FEU). The reference range was not used to interpret this result as normal/abnormal . LIT (test code = This test may be LIT) used in conjunction with a clinical pretest probability (PTP) assessment model to exclude venous thromboembolism (VTE) in patients suspected of deep venous thrombosis (DVT) and pulmonary embolism (PE) A D-Dimer value less than 0.50 ?g/ml (FEU) has a negative predicative value of 96 to 100% (95% CI)and 97 to 100% (95% CI) as an aid in the diagnosis of deep vein thrombosis (DVT) and pulmonary embolism when there is low or moderate pretest probability of PE or DVT. D-Dimer values are expressed in initial fibrinogen equivalent units (FEU)" The assay results should be used with other information, including the clinical context, in forming a diagnosis. Lab Interpretation Normal (test code = 63526-1) [facility]. METABOLIC PANEL ([id number])2021-10-20 01:19:29 Test Item Value Reference Range Interpretation Comments NA (test code = 138 mmol/L 135-145 0401640952) K (test code = 4.5 mmol/L 3.5-5.0 7092099670) CL (test code = 103 mmol/L 98-108 2644982998) CO2 TOTAL (test code 29 mmol/L 23-31 = 7392911230) AGAP (test code = 2-16 1610572759) BUN (test code = 16 mg/dL 7-23 5646578327) GLUCOSE (test code = 97 mg/dL 70-110 2498505828) CREATININE (test code 0.99 mg/dL 0.60-1.25 = 1530295240) TOTAL BILI (test code 0.5 mg/dL 0.1-1.1 = 5330721695) CALCIUM (test code = 8.9 mg/dL 8.6-10.6 1291477515) T PROTEIN (test code 7.1 g/dL 6.3-8.2 = 7250279839) ALBUMIN (test code = 4.3 g/dL 3.5-5.0 7251122842) ALK PHOS (test code = 57 U/L 34-122 3194229501) ALTv (test code = 21 U/L 5-50 1742-6) AST(SGOT) (test code 24 U/L 13-40 = 4633059167) eGFR (test code = mL/min/1.73m2 2418748861) LIT (test code = LIT) Association of Glomerular Filtration Rate (GFR) and Staging of Kidney Disease* + + +- +| GFR (mL/min/1.73 m2) ?| With Kidney Damage ?| ?Without Kidney Damage+ ------+ ----+ ------+| ?>90 ?| ?Stage one ?| ? Normal ?+ -+ + -+| ?60-89 ?| ?Stage two ?| ? Decreased GFR ? + + +- +| ?30-59 ?| ?Stage three ?| ? Stage three ? + + +- +| ?15-29 ?| ?Stage four ? | ? Stage four ?+ -+ + -+| ?<15 (or dialysis) ? ?| ?Stage five ? | ? Stage five ?+ -+ + -+ *Each stage assumes the associated GFR level has been in effect for at least three months. ?Stages 1 to 5, with or without kidney disease, indicate chronic kidney disease. Notes: Determination of stages one and two (with eGFR >59mL/min/1.73 m2) requires estimation of kidney damage for at least three months as defined by structural or functional abnormalities of the kidney, manifested by either:Pathological abnormalities or Markers of kidney damage (including abnormalities in the composition of the blood or urine or abnormalities in imaging tests). [facility], [id number] 01:19:08 Test Item Value Reference Range Interpretation Comments LIPASE (test code = 3417269994) 98 U/L 0-220 Lab Interpretation (test code = Normal 42440-5) [id number] 01:16:27 Test Item Value Reference Range Interpretation Comments APTT Patient (test See_Comment [Automat ed code = 3173-2) message] The system which generated this result transmitted reference range : 23 - 38 Seconds . The reference range was not used to interpr et this result as normal/abnormal . LIT (test code = LIT) The [facility] patient population mean normal value for aPTT is 30 seconds. Lab Interpretation Normal (test code = 60626-2) [facility] / [id number] 01:14:26 Test Item Value Reference Range Interpretation Comments PROTIME PATIENT (test See_Comment [Auto mated message] code = 5964-2) The system wh ich generated this result transmitted ref erence range: 12.0 - 1 4.7 Seconds. The re ference range was not u sed to interpret this result as normal/abnor mal. INR (test code = 6301-6) Nor mal INR <1.1; Warfarin Therap eutic range 2.0 to 3. 0 or 2.5 to 3.5, dep ending upon the indica tions. Lab Interpretation (test Normal code = 79739-6) [facility] WITH [id number] 01:03:26 Test Item Value Reference Range Interpretation Comments WBC (test code = See_Comment [Automated 6690-2) message] The sy stem which generated this result transmitted reference range : 4.20 - 10.70 10*3/?L. The reference range was not used to interpret this result as normal/abnormal . RBC (test code = See_Comment [Automated 729-8) message] The sy stem which generated this result transmitted reference range : 4.26 - 5.52 10*6/?L. The reference range was not used to interpret this result as normal/abnormal . HGB (test code = 15.1 g/dL 12.2-16.4 718-7) HCT (test code = 47.4 % 38.4-49.3 4544-3) MCV (test code = 94.2 fL 81.7-95.6 787-2) MCH (test code = 30.0 pg 26.1-32.7 785-6) MCHC (test code = 31.9 g/dL 31.2-35.0 786-4) RDW-SD (test code = 47.9 fL 38.5-51.6 76389-0) RDW-CV (test code = 13.9 % 12.1-15.4 788-0) PLT (test code = See_Comment H [Automated 777-3) message] The sy stem which generated this result transmitted reference range : 150 - 328 10*3/ ?L. The reference r tariq was not used to interpret this result as normal/abnormal . MPV (test code = 9.0 fL 9.8-13.0 L 50412-6) NRBC/100 WBC (test See_Comment [Automat ed code = 6366193301) message] The system which generated this result transmitted reference range : 0.0 - 10.0 /100 WBCs. The refer ence range was not u sed to interpret th is result as normal/abnormal . NRBC x10^3 (test code <0.01 See_Comment [Auto mated = 0258558862) message] The s ystem which generated this result transmitted reference range : 10*3/?L. The reference range was not used to interpret this result as normal/abnormal . GRAN MAT (NEUT) % 64.6 % (test code = 770-8) IMM GRAN % (test code 0.20 % = 3914687723) LYMPH % (test code = 20.7 % 736-9) MONO % (test code = 12.6 % 5905-5) EOS % (test code = 1.6 % 713-8) BASO % (test code = 0.3 % 706-2) GRAN MAT x10^3(ANC) 4.07 10*3/uL 1.99-6.95 (test code = 5494816535) IMM GRAN x10^3 (test <0.03 0.00-0.06 code = 7099819053) LYMPH x10^3 (test code 1.30 10*3/uL 1.09-3.23 = 731-0) MONO x10^3 (test code 0.79 10*3/uL 0.36-1.02 = 742-7) EOS x10^3 (test code = 0.10 10*3/uL 0.06-0.53 711-2) BASO x10^3 (test code <0.03 0.01-0.09 = 704-7) Lab Interpretation Abnormal (test code = 00359-6) [facility]
[2022-02-14 15:04] LABS: Absolute Lymphocytes (CBC) 1.1 K/uL (0.7-4.9); Hematocrit 44.8 % (39.6-49.0); Lymphocytes % 31.3 % (15.3-44.8); MPV 6.9 fL (7.6-11.3); RBC Red Blood Cell Count 4.96 M/uL (4.33-5.43)
[2022-02-14 15:09] LABS: Potassium 3.8 mmol/L (3.5-5.1)
[2022-02-14] MEDS ORDERED: NA CHLORIDE 0.9% 1,000 ML ONE (15:28)
--- NOTE | 2022-02-14 16:26 | RAD REPORT ---
EXAM DESCRIPTION: Manjula Single View02/14/2022 3:51 pm CLINICAL HISTORY: Cough COMPARISON: 2019 FINDINGS: The lungs appear clear of acute infiltrate. The heart is normal size IMPRESSION: No acute abnormalities displayed
--- NOTE | 2022-02-14 16:35 | ER ---
Nurse's Notes [facility] Name: Bakari Delgado Sr Age: 61 yrs Sex: Male : 1960 Arrival Date: 02/14/2022 Time: 14:28 Bed Treatment Private MD: Diagnosis: Syncope;Coronavirus infection, unspecified Presentation: 02/14 14:28 Chief complaint: Patient states: At home covid test positive yesterday. Had a coughing ll1 fit at home today, went to stand up and passed out. Denies injury from passing out. No fevers. Coronavirus screen: Vaccine status: Patient reports receiving the 2nd dose of the covid vaccine. Client denies travel out of the [place] in the last 14 days. cough unrelated to allergies, Client presents with at least one sign or symptom that may indicate coronavirus-19. Standard/surgical mask placed on the client. Ebola Screen: Patient denies travel to an Ebola-affected area in the 21 days before illness onset. Initial Sepsis Screen: Does the patient meet any 2 criteria? No. Patient's initial sepsis screen is negative. Does the patient have a suspected source of infection? Yes: Productive cough/pneumonia. Risk Assessment: Do you want to hurt yourself or someone else? Patient reports no desire to harm self or others. Onset of symptoms was February 13, 2022. 14:28 Method Of Arrival: EMS ll1 14:28 Acuity: REMY 3 ll1 Triage Assessment: 14:32 General: Appears uncomfortable, Behavior is calm, cooperative, appropriate for age. ll1 Pain: Denies pain. Neuro: Reports a syncopal episode. Respiratory: Reports cough that is. Historical: - Allergies: 14:31 NKDA; ll1 - PMHx: 14:31 Hypertension; ll1 - PSHx: 14:31 None; ll1 - Immunization history:: Client reports receiving the 2nd dose of the Covid vaccine. - Social history:: Smoking status: Patient denies any tobacco usage or history of. Screenin:27 Abuse screen: Denies threats or abuse. Denies injuries from another. Nutritional ld1 screening: No deficits noted. Tuberculosis screening: No symptoms or risk factors identified. Fall Risk None identified. Assessment: 15:27 General: Appears in no apparent distress. comfortable, Behavior is calm, cooperative, ld1 appropriate for age. Pain: Denies pain. Neuro: Level of Consciousness is awake, alert, obeys commands, Oriented to person, place, time, situation. Cardiovascular: Capillary refill < 3 seconds Patient's skin is warm and dry. Rhythm is regular. Respiratory: Airway is patent Respiratory effort is even, unlabored, Breath sounds are clear bilaterally. GI: Abdomen is round non-distended. : No signs and/or symptoms were reported regarding the genitourinary system. EENT: No signs and/or symptoms were reported regarding the EENT system. Derm: No signs and/or symptoms reported regarding the dermatologic system. Musculoskeletal: No signs and/or symptoms reported regarding the musculoskeletal system. 16:25 Reassessment: Patient appears in no apparent distress at this time. No changes from ld1 previously documented assessment. Patient and/or family updated on plan of care and expected duration. Pain level reassessed. Patient is alert, oriented x 3, equal unlabored respirations, skin warm/dry/pink. 17:02 Reassessment: Patient appears in no apparent distress at this time. No changes from ld1 previously documented assessment. Patient and/or family updated on plan of care and expected duration. Pain level reassessed. Patient is alert, oriented x 3, equal unlabored respirations, skin warm/dry/pink. Vital Signs: 14:28 BP 133 / 73; Pulse 71; Resp 18; Temp 98.7; Pulse Ox 97% on R/A; Weight 130.63 kg; ll1 Height 5 ft. 7 in. (170.18 cm); Pain 0/10; 15:27 BP 131 / 70; Pulse 74; Resp 18; Pulse Ox 98% on R/A; ld1 16:25 BP 136 / 72; Pulse 76; Resp 18; Pulse Ox 98% on R/A; ld1 17:02 BP 129 / 71; Pulse 86; Resp 18; Pulse Ox 100% on R/A; ld1 14:28 Body Mass Index 45.11 (130.63 kg, 170.18 cm) ll1 NIH Stroke Scale Scores: 14:28 NIHSS Score: 0 ll1 ED Course: 14:28 Patient arrived in ED. 1 14:30 [facility]C [facility] kb 14:30 Kali Su MD is Attending Physician. kb 14:31 Triage completed. ll1 14:31 Arm band placed on. ll1 15:27 Shayna Martel, AYANA is Primary Nurse. ld1 15:27 Patient has correct armband on for positive identification. Placed in gown. Bed in low ld1 position. Call light in reach. Side rails up X2. monitor technician on. Pulse ox on. NIBP on. Door closed. Noise minimized. Warm blanket given. 15:27 No provider procedures requiring assistance completed. Maintain EMS IV. Dressing ld1 intact. Good blood return noted. Site clean \T\ dry. Gauge \T\ site: 20G RAC. 15:53 Chest Single View XRAY In Process Unspecified. EDMS 17:03 IV discontinued, intact, bleeding controlled, No redness/swelling at site. ld1 Administered Medications: 15:27 Drug: NS 0.9% 1000 ml Route: IV; Rate: 1000 ml; Site: right antecubital; ld1 Medication: 15:27 VIS not applicable for this client. ld1 Outcome: 16:35 Discharge ordered by MD. kb 17:03 Discharged to home ambulatory. ld1 17:03 Condition: stable 17:03 Discharge instructions given to patient, family, Instructed on discharge instructions, follow up and referral plans. medication usage, Demonstrated understanding of instructions, follow-up care, medications, Prescriptions given X 1. 17:03 Patient left the ED. ld1 NIH Stroke Scale - NIH Stroke Score Date: 02/14/2022 Time: 14:28 Total Score = 0 1a. Level of Consciousness (LOC) - 0(Alert) 1b. Level of Consciousness (LOC) (Month \T\ Age) - 0(Both) 1c. LOC Commands (Open \T\ Closes Eyes/Coal Dumping Equipment Operator) - 0(Both) 2. Best Gaze (Lateral Gaze Paresis) - 0(Normal) 3. Visual Field Loss - 0(No visual loss) 4. Facial Palsy - 0(Normal) 5a. Left Arm: Motor (10-second hold) - 0(No drift) 5b. Right Arm: Motor (10-second hold) - 0(No drift) 6a. Left Leg: Motor (5-second hold - always test supine) - 0(No drift) 6b. Right Leg: Motor (5-second hold - always test supine) - 0(No drift) 7. Limb Ataxia (finger/nose \T\ heel/parsons - test with eyes open) - 0(Absent) 8. Sensory Loss (pinprick arms/legs/face) - 0(Normal) 9. Best Language: Aphasia (description/naming/reading) - 0(No aphasia) 10. Dysarthria (speech clarity - read or repeat words) - 0(Normal) 11. Extinction and Inattention (visual/tactile/auditory/spatial/personal) - 0(No abnormality) Initials: ll1 Signatures: Dispatcher [employer] EDJennifer Mars, HUMAN CAPITAL ANALYST-C HUMAN CAPITAL ANALYST-CkCrispin Montano, RN RN ll1 Shayna Martel, RN RN ld1
--- NOTE | 2022-02-14 16:35 | EDPHYS ---
Physician Documentation [facility] Name: Bakari Delgado Sr Age: 61 yrs Sex: Male : 1960 Arrival Date: 02/14/2022 Time: 14:28 Bed Treatment Private MD: ED Physician Kali Su HPI: 02/14 15:15 This 61 yrs old Black Male presents to ER via EMS with complaints of Syncope. kb 15:15 The patient has experienced syncope, collapsed. Onset: The symptoms/episode kb began/occurred just prior to arrival. Duration: This was a single episode. Context: the episode(s) was witnessed, by family, occurred at home, occurred while the patient was coughing. Associated injury: The patient did not suffer any apparent associated injury. Associated signs and symptoms: The patient has no apparent associated signs or symptoms. Current symptoms: Currently, the patient is not experiencing any symptoms, the patient feels back to baseline, no decreased level of consciousness. The patient has not experienced similar symptoms in the past. The patient has not recently seen a physician. Pt states he has been coughing a lot and tested positive for covid yesterday. Today had a bad coughing fit that caused him to pass out. States he did not injury himself, has no pain and feels fine now. Denies headache, dizziness. . Historical: - Allergies: 14:31 NKDA; ll1 - PMHx: 14:31 Hypertension; ll1 - PSHx: 14:31 None; ll1 - Immunization history:: Client reports receiving the 2nd dose of the Covid vaccine. - Social history:: Smoking status: Patient denies any tobacco usage or history of. ROS: 15:13 Constitutional: Negative for fever, chills, and weight loss. kb 15:13 Respiratory: Positive for cough, Negative for dyspnea on exertion, hemoptysis, orthopnea, pleurisy, shortness of breath, sputum production, wheezing. 15:13 Neuro: Positive for syncope. 15:13 All other systems are negative. Exam: 15:13 Constitutional: This is a well developed, well nourished patient who is awake, alert, kb and in no acute distress. Head/Face: Normocephalic, atraumatic. ENT: Moist Mucous membranes Cardiovascular: Regular rate and rhythm with a normal S1 and S2. No gallops, murmurs, or rubs. No pulse deficits. Respiratory: Respirations even and unlabored. No increased work of breathing. Talking in full sentences Skin: Warm, dry with normal turgor. Normal color. MS/ Extremity: Pulses equal, no cyanosis. Neurovascular intact. Full, normal range of motion. Neuro: Awake and alert, GCS 15, oriented to person, place, time, and situation. Moves all extremities. Normal gait. Psych: Awake, alert, with orientation to person, place and time. Behavior, mood, and affect are within normal limits. 15:14 ECG was reviewed by the Attending Physician. kb Vital Signs: 14:28 BP 133 / 73; Pulse 71; Resp 18; Temp 98.7; Pulse Ox 97% on R/A; Weight 130.63 kg; ll1 Height 5 ft. 7 in. (170.18 cm); Pain 0/10; 15:27 BP 131 / 70; Pulse 74; Resp 18; Pulse Ox 98% on R/A; ld1 16:25 BP 136 / 72; Pulse 76; Resp 18; Pulse Ox 98% on R/A; ld1 17:02 BP 129 / 71; Pulse 86; Resp 18; Pulse Ox 100% on R/A; ld1 14:28 Body Mass Index 45.11 (130.63 kg, 170.18 cm) ll1 NIH Stroke Scale Scores: 14:28 NIHSS Score: 0 ll1 MDM: 14:33 Patient medically screened. kb 15:13 Data reviewed: vital signs, nurses notes. Data interpreted: Pulse oximetry: on room air kb is 97 %. Interpretation: normal. Counseling: I had a detailed discussion with the patient and/or guardian regarding: the historical points, exam findings, and any diagnostic results supporting the discharge/admit diagnosis, lab results, radiology results, the need for outpatient follow up, a family practitioner, to return to the emergency department if symptoms worsen or persist or if there are any questions or concerns that arise at home. 02/14 14:34 Order name: CBC with Diff kb 02/14 14:34 Order name: Basic Metabolic Panel; Complete Time: 15:12 kb 02/14 14:34 Order name: IV Start; Complete Time: 14:41 kb 02/14 14:34 Order name: Chest Single View XRAY; Complete Time: 16:29 kb 02/14 14:34 Order name: EKG; Complete Time: 14:35 kb 02/14 14:34 Order name: EKG - Nurse/Tech; Complete Time: 14:41 kb EC:14 Rate is 61 beats/min. Rhythm is regular. Right axis deviation noted. CT interval is kb prolonged at 212 msec. QRS interval is normal at 84 msec. QT interval is normal at 392 msec. Administered Medications: 15:27 Drug: NS 0.9% 1000 ml Route: IV; Rate: 1000 ml; Site: right antecubital; ld1 Disposition: 17:55 Attestation: The patient's history, exam findings, diagnostics, and a summary of any [facility] interventions or procedures was reviewed in detail with Jennifer NAVARRETE. Disposition Summary: 02/14/22 16:35 Discharge Ordered Location: Home kb Condition: Stable kb Diagnosis - Syncope kb - Coronavirus infection, unspecified kb Followup: kb - With: Emergency Department - When: As needed - Reason: Worsening of condition Followup: kb - With: Private Physician - When: 2 - 3 days - Reason: Recheck today's complaints, Continuance of care, Re-evaluation by your physician Discharge Instructions: - Discharge Summary Sheet kb - Syncope, [id number] kb - COVID-19 kb Forms: - Medication Reconciliation Form kb - Work release form kb - Thank You Letter kb - Antibiotic Education kb - Prescription Opioid Use kb Prescriptions: - Tessalon Perles 100 mg Oral Capsule - take 1 capsule by ORAL route every 8 hours As needed; 15 capsule; Refills: 0, kb Product Selection Permitted NIH Stroke Scale - NIH Stroke Score Date: 02/14/2022 Time: 14:28 Total Score = 0 1a. Level of Consciousness (LOC) - 0(Alert) 1b. Level of Consciousness (LOC) (Month \T\ Age) - 0(Both) 1c. LOC Commands (Open \T\ Closes Eyes/Store Product Demonstrator) - 0(Both) 2. Best Gaze (Lateral Gaze Paresis) - 0(Normal) 3. Visual Field Loss - 0(No visual loss) 4. Facial Palsy - 0(Normal) 5a. Left Arm: Motor (10-second hold) - 0(No drift) 5b. Right Arm: Motor (10-second hold) - 0(No drift) 6a. Left Leg: Motor (5-second hold - always test supine) - 0(No drift) 6b. Right Leg: Motor (5-second hold - always test supine) - 0(No drift) 7. Limb Ataxia (finger/nose \T\ heel/parsons - test with eyes open) - 0(Absent) 8. Sensory Loss (pinprick arms/legs/face) - 0(Normal) 9. Best Language: Aphasia (description/naming/reading) - 0(No aphasia) 10. Dysarthria (speech clarity - read or repeat words) - 0(Normal) 11. Extinction and Inattention (visual/tactile/auditory/spatial/personal) - 0(No abnormality) Initials: ll1 Signatures: Dispatcher [employer] EDJennifer Mars, SERGING MACHINE OPERATOR AUTOMATIC-C SERGING MACHINE OPERATOR AUTOMATIC-Crispin Silva RN RN ll1 Shayna Martel RN RN ld1 Kali Su MD MD [id number]
[2022-02-14 17:10] VITALS: TEMP 98.7
[2022-02-14 17:14] VITALS: BP 129/71; O2SAT 100
[2022-02-14 20:26] LABS: Blood Morphology Comment NOT SEEN (NOT SEEN); Platelet Estimate ADEQ; White Blood Cell Scan OK (OK)
--- NOTE | 2022-02-15 06:17 | EKG ---
Test Date: 2022-02-14 Test Time: 14:37:36 Banking Specialist: QUANG MEASUREMENT RESULTS: Intervals: Rate: 61 HI: 212 QRSD: 84 QT: 392 QTc: 394 [place]: P: 44 HI: 212 QRS: 160 T: 14 INTERPRETIVE STATEMENTS: Sinus rhythm with sinus arrhythmia with 1st degree AV block Right axis deviation Anterior infarct, age undetermined Abnormal ECG Compared to ECG 06/05/2020 09:17:18 First degree AV block now present Right-axis deviation now present Myocardial infarct finding still present Electronically Signed On 02-15-22 06:16:12 CDT by Michael Dudley
== END 2022-02-14 17:03 | disposition home or self-care (01) ==
LOC: ER 14:12
DX: U07.1 COVID-19 (principal); I10 Essential (primary) hypertension
CPT/HCPCS: 93005; 85025; 80048; 36415; 71045; 99284; J7030